=== PATIENT | female | born 1935 | race Caucasian/White ===

== ENCOUNTER 2016-08-05 19:37 | Emergency (ER) | payer MEDICARE ==
[~2016-08-05] VITALS: Ht 162.6 cm; Wt 72.0 kg
[~2016-08-05 19:37] MED LIST: ASCO500C PO; ASPI81TA82 PO; LEVO112T17 PO; LORA2TAB PO; OMPR20CCR PO; PREM0.622 PO; ROSU10 PO; TAB-TAB PO; VITA100018 PO; VITA400C70 PO
[2016-08-05] MEDS ORDERED: SODIUM CHLOR 0.9% 1000 ML INJ 1,000 ML IV SCH (19:46)
--- NOTE | 2016-08-05 19:48 | PD ---
HPI Chief Complaint: Fall, EtOH Intox, Ativan Ingestion Time Seen by Provider: 19:46 Travel History International Travel<30 days: No Contact w/Intl Traveler<30days: No History of Present Illness HPI The patient is 81 years old and arrives by EMS. She was found on the floor by her at home. She lives with her and her Only in a private residence. She argued with him earlier in the day and had ingested Ativan 2 mg tablets of unknown quantity however the patient states two. She also drank gin. She states she drinks 1 martini every day at 1 PM. Timing of ingestion is unknown. The patient denies memory of a fall. Evidently following the argument helped her into bed. He then found her on the floor and called EMS. Patient reports a history of falls and difficulty with balance. On scene the blood glucose was 83. PFSH Past Medical History Cancer: No Diabetes: No Hepatitis: No Hiatal Hernia: No Thyroid Disease: Yes Past Surgical History Abdominal Surgery: Yes (TOTAL HYSTERECTOMY) Eye Surgery: Yes (CATARACT LEFT ) Gynecologic Surgery: Yes (hysterectomy) Pacemaker: No Other Surgery: Yes Social History Alcohol Use: Yes (DAILY) Tobacco Use: No Substance Use: No Allergies-Medications (Allergen,Severity, Reaction): Coded Allergies: Prozac (Unverified Allergy, Severe, Swelling, 08/05/16) FACE SWELLED UP Tylenol (Unverified Allergy, Severe, hives and itching, 08/05/16) Aspirin (Unverified Allergy, Mild, hives, 08/05/16) Reported Meds & Prescriptions Reported Meds & Active Scripts Active Reported Vitamin E 400 Unit Cap 400 Units PO DAILY Crestor (Rosuvastatin Calcium) 10 Mg Tab 10 Mg PO DAILY Prilosec (Omeprazole) 20 Mg Cap 20 Mg PO DAILY Multivitamin Adults (Multiple Vitamins W/ Minerals) 1 Tab 1 Tab PO DAILY Lorazepam 2 Mg Tab 2 Mg PO HS PRN Levoxyl (Levothyroxine Sodium) 112 Mcg Tab 112 Mcg PO DAILY Premarin (Estrogens Conjugated) 0.625 Mg Tab 0.625 Mg PO DAILY Vitamelts Vitamin D (Cholecalciferol) 1,000 Unit Tab 1,000 Units PO DAILY Aspirin 81 Mg Chew 81 Mg CHEW DAILY Vitamin C (Ascorbic Acid) 500 Mg Cap 500 Mg PO DAILY Review of Systems ROS Limitations: Clinical Condition, Intoxication Physical Exam Narrative GENERAL: 81 yo F, WNWND, slightly slurred speech c/w etoh intox SKIN: Warm and dry. HEAD: No evidence trauma. Normocephalic. EYES: Pupils equal and round. No scleral icterus. No injection or drainage. ENT: No nasal bleeding or discharge. Mucous membranes pink and moist. NECK: Trachea midline. No JVD. CARDIOVASCULAR: Regular rate and rhythm. RESPIRATORY: No accessory muscle use. Clear to auscultation. Breath sounds equal bilaterally. GASTROINTESTINAL: Abdomen soft, non-tender, nondistended. Hepatic and splenic margins not palpable. MUSCULOSKELETAL: Extremities without clubbing, cyanosis, or edema. No obvious deformities. No tenderness about the hips/greater trochanter. NEUROLOGICAL: Awake and alert. No obvious cranial nerve deficits. Motor grossly within normal limits. Five out of 5 muscle strength in the arms and legs. Normal speech. PSYCHIATRIC: Appropriate mood and affect; insight and judgment normal. Data Data Last Documented VS Vital Signs Date Time Temp Pulse Resp B/P Pulse Ox O2 Delivery O2 Flow Rate FiO2 08/05/16 20:16 75 16 96 Room Air 08/05/16 19:49 98.2 137/60 Orders Basic Metabolic Panel (Bmp) (08/05/16 19:46) Complete Blood Count With Diff (08/05/16 19:46) Creatine Kinase (Cpk) (08/05/16 19:46) Ecg Monitoring (08/05/16 19:46) Iv Access Insert/Monitor (08/05/16 19:46) Cath For Specimen (08/05/16 19:46) Oximetry (08/05/16 19:46) Sodium Chloride 0.9% Flush (Ns Flush) (08/05/16 20:00) Sodium Chlor 0.9% 1000 Ml Inj (Ns 1000 M (08/05/16 19:46) Drug Screen, Random Urine (08/05/16 19:46) Alcohol (Ethanol) (08/05/16 19:46) Salicylates (Aspirin) (08/05/16 19:46) Tylenol (Acetaminophen) (08/05/16 19:46) Labs Laboratory Tests Test 08/05/16 08/05/16 20:00 20:25 White Blood Count 5.0 TH/MM3 Red Blood Count 4.21 MIL/MM3 Hemoglobin 13.5 GM/DL Hematocrit 39.1 % Mean Corpuscular Volume 92.9 FL Mean Corpuscular Hemoglobin 32.0 PG Mean Corpuscular Hemoglobin 34.4 % Concent Red Cell Distribution Width 12.9 % Platelet Count 171 TH/MM3 Mean Platelet Volume 10.3 FL Neutrophils (%) (Auto) 53.0 % Lymphocytes (%) (Auto) 31.9 % Monocytes (%) (Auto) 8.0 % Eosinophils (%) (Auto) 6.1 % Basophils (%) (Auto) 1.0 % Neutrophils # (Auto) 2.7 TH/MM3 Lymphocytes # (Auto) 1.6 TH/MM3 Monocytes # (Auto) 0.4 TH/MM3 Eosinophils # (Auto) 0.3 TH/MM3 Basophils # (Auto) 0.0 TH/MM3 CBC Comment DIFF FINAL Differential Comment Sodium Level 142 MEQ/L Potassium Level 4.4 MEQ/L Chloride Level 109 MEQ/L Carbon Dioxide Level 25.8 MEQ/L Anion Gap 7 MEQ/L Blood Urea Nitrogen 17 MG/DL Creatinine 0.72 MG/DL Estimat Glomerular Filtration 78 ML/MIN Rate Random Glucose 89 MG/DL Calcium Level 8.7 MG/DL Total Creatine Kinase 56 U/L Salicylates Level LESS THAN 1.7 MG/DL Acetaminophen Level LESS THAN 2.0 MCG/ML Ethyl Alcohol Level 93 MG/DL Urine Opiates Screen NEG Urine Barbiturates Screen NEG Urine Amphetamines Screen NEG Urine Benzodiazepines Screen NEG Urine Cocaine Screen NEG Urine Cannabinoids Screen NEG MDM Medical Decision Making Medical Screen Exam Complete: Yes Emergency Medical Condition: Yes Medical Record Reviewed: Yes Differential Diagnosis Electrolyte imbalance, rhabdomyolysis, renal injury, fracture of the pelvis or femur, intracranial hemorrhage, alcohol abuse, alcohol intoxication, polysubstance abuse, benzodiazepine usage Narrative Course CBC & BMP Diagram 08/05/16 20:00 Ethyl alcohol 93 Tylenol and salicylates both negative The patient reports feeling much better. Her is at the bedside. At 9: 00 PM she demonstrates capacity for ambulation independent decision making. 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 Diagnosis Primary Impression: Alcohol intoxication Qualified Code: F10.120 - Alcohol intoxication, uncomplicated Additional Impressions: Benzodiazepine misuse Fall Qualified Code: W19.XXXA - Fall, initial encounter Referrals: Kevin Up MD 2 days Additional Instructions: You have a choice when it comes to health care, and we are glad that you chose [facility]. Hopefully, we have met your expectations on today's visit. You are welcome to return to [facility] at any time, as we are committed to meeting the health care needs of our community. Med/Other Pt SpecificInfo: No Change to Meds Disposition: 01 DISCHARGE HOME Condition: Dany Lakhani MD Aug 05, 2016 19:48
[2016-08-05 19:49] VITALS: BP 137/60; PULSE 75; RESP 16; TEMP 98.2; O2SAT 98
[2016-08-05] MEDS ORDERED: SODIUM CHLORIDE 0.9% FLUSH 5 ML FLUSH IVF PRN (20:00)
[2016-08-05 20:14] VITALS: RESP 16; O2SAT 97
[2016-08-05 20:20] LABS: AUTOMATED NEUTROPHIL # 2.7 TH/MM3 (1.8-7.7); EOSINOPHIL # 0.3 TH/MM3 (0-0.4); EOSINOPHIL % 6.1 % (0.0-4.0); HEMATOCRIT 39.1 % (35.0-46.0); HEMO FLAGS DIFF FINAL; LYMPH % 31.9 % (9.0-44.0); LYMPHOCYTE # 1.6 TH/MM3 (1.0-4.8); MEAN CELL VOLUME 92.9 FL (80.0-100.0); MEAN CORPUSCULAR HGB CONC 34.4 % (32.0-36.0); PLATELET COUNT 171 TH/MM3 (150-450); RED BLOOD COUNT 4.21 MIL/MM3 (4.00-5.30); RED CELL DISTRIBUTION WIDTH 12.9 % (11.6-17.2)
[2016-08-05 20:46] LABS: AMPHETAMINE, URINE NEG (NEG); BARBITURATES, URINE NEG (NEG); COCAINE, URINE NEG (NEG)
[2016-08-05] MEDS ORDERED: PRIL20CA9 PO (20:46)
[2016-08-05] MEDS ORDERED: MULT1TAB84 PO (20:46)
[2016-08-05] MEDS ORDERED: CHOL1TAB PO (20:46)
[2016-08-05] MEDS ORDERED: ROSU10 PO (20:46)
[2016-08-05] MEDS ORDERED: ASPI81CH CHEW (20:46)
[2016-08-05] MEDS ORDERED: LEVO112T29 PO (20:46)
[2016-08-05] MEDS ORDERED: VITA400C2 PO (20:46)
[2016-08-05] MEDS ORDERED: ASCO500C PO (20:46)
[2016-08-05] MEDS ORDERED: ESTR.625 PO (20:46)
[2016-08-05] MEDS ORDERED: LORA2TAB7 PO (20:46)
[2016-08-05 20:50] LABS: ANION GAP 7 MEQ/L (5-15); BICARBONATE 25.8 MEQ/L (21.0-32.0); BLOOD UREA NITROGEN 17 MG/DL (7-18); CHLORIDE 109 MEQ/L (98-107); GLOMERULAR FILTRATION RATE 78 ML/MIN (>89); POTASSIUM 4.4 MEQ/L (3.5-5.1); SODIUM (NA) 142 MEQ/L (136-145)
[2016-08-05 20:54] LABS: ACETAMINOPHEN LESS THAN 2.0 MCG/ML (10.0-30.0); CREATINE KINASE 56 U/L (26-192)
--- NOTE | 2016-08-06 09:20 | EKG ---
Date Performed: 08/05/2016 Time Performed: 19:54:58 PTAGE: 81 years EKG: Sinus rhythm NORMAL ECG PREVIOUS TRACING : 04/01/2014 19.58 Compared to prior tracing no significant change DOCTOR: Ace Rivera Interpretating Date/Time 08/06/2016 09:19:21
--- NOTE | 2016-08-06 10:02 | HHI.PR ---
Subjective Remarks Patient was in emergency room for alcohol use with ingestion Ativan and when i saw patient unable to ambulate and was incoherent . Patient did recognize me and was unable to tell us what she took and how much. Patient was started on IV fluids and did improve . Patient was feeling better and i decided to discharge but on walking was very unsteady and i was going to admit to observation. Patient had a fight with her and drink excessively and my have taken at least 2 extra Ativan. Later in evening she became more alert and both myself ER physician and agreed to send her home and to follow up with me. Objective Vitals GENERAL: SKIN: Warm and dry. HEAD: Atraumatic. Normocephalic. EYES: Pupils equal and round. No scleral icterus. No injection or drainage. ENT: No nasal bleeding or discharge. Mucous membranes pink and moist. NECK: Trachea midline. No JVD. CARDIOVASCULAR: Regular rate and rhythm. RESPIRATORY: No accessory muscle use. Clear to auscultation. Breath sounds equal bilaterally. GASTROINTESTINAL: Abdomen soft, non-tender, nondistended. Hepatic and splenic margins not palpable. MUSCULOSKELETAL: Extremities without clubbing, cyanosis, or edema. No obvious deformities. NEUROLOGICAL: Awake and alert. No obvious cranial nerve deficits. Motor grossly within normal limits. Five out of 5 muscle strength in the arms and legs. Normal speech. PSYCHIATRIC: Appropriate mood and affect; insight and judgment normal. Initial confusion Vital Signs Date Time Temp Pulse Resp B/P Pulse Ox O2 Delivery O2 Flow Rate FiO2 08/05/16 20:16 75 16 96 Room Air 08/05/16 20:14 16 97 Room Air 08/05/16 19:49 98.2 75 16 137/60 98 Result Diagram: 08/05/16199908/05/161999 Medications and IVs given IV fluid A/P Problem List: (1) Alcohol intoxication Status: Acute Plan: level 90 will discharge home with (2) Benzodiazepine misuse Status: Acute Plan: probable small amout ingested will follow up with patient in office (3) Fall Status: Acute Plan: On exam no evidence of any trauma and had no pain anywhere Assessment and Plan home with follow up in office Problem Qualifiers (1) Alcohol intoxication: Qualified Code: F10.120 - Alcohol intoxication, uncomplicated (2) Fall: Qualified Code: W19.XXXA - Fall, initial encounter Kevin Up MD Aug 06, 2016 10:02
== END 2016-08-05 21:54 | disposition home or self-care (01) ==
LOC: NEPE 19:37 → UNDOADMOB 21:20 → NEDA 21:20 → UNDODISOB 21:50
DX: F10.120 Alcohol abuse with intoxication, uncomplicated (principal); F19.99 Other psychoactive substance use, unspecified with unspecified psychoactive substance-induced disorder; E07.9 Disorder of thyroid, unspecified; R29.6 Repeated falls; W19.XXXA Unspecified fall, initial encounter; Z91.81 History of falling; Y92.003 Bedroom of unspecified non-institutional (private) residence as the place of occurrence of the external cause; Y99.8 Other external cause status
CPT/HCPCS: 80048; 80307; 80320; 82550; 85025; 93005; 96360; 99285; J7030; P9612; 80329; G0378; G0480

== ENCOUNTER 2017-03-05 10:46 | Emergency (ER) | payer MEDICARE ==
[~2017-03-05 10:46] MED LIST changes: +ASPI81CH CHEW; -ASPI81TA82 PO; +CHOL1TAB PO; +ESTR.625 PO; -LEVO112T17 PO; +LEVO112T29 PO; -LORA2TAB PO; +LORA2TAB7 PO; +MULT1TAB84 PO; -OMPR20CCR PO; -PREM0.622 PO; +PRIL20CA9 PO; -TAB-TAB PO; -VITA100018 PO; +VITA400C2 PO; -VITA400C70 PO
[2017-03-05 10:57] VITALS: BP 130/71; PULSE 77; RESP 18; TEMP 97.6; O2SAT 96
--- NOTE | 2017-03-05 11:10 | PD ---
HPI Chief Complaint: Foreign Body Time Seen by Provider: 11:04 Travel History International Travel<30 days: No Contact w/Intl Traveler<30days: No Traveled to known affect area: No History of Present Illness HPI 81-year-old female with history of hypertension, presents to the ER today for 1 day of nausea, vomiting, and felt like she had something in the back of her throat after she vomited. She denies any drooling, difficulty breathing, or any other symptoms. She states that it feels like is the back of her tongue. Modifying Factors: None Associated Signs & Symptoms: Difficulty swallowing, feels something stuck in the back of her tongue Risk Factors: None PFSH Past Medical History Cancer: No Cardiovascular Problems: No Diabetes: No Diminished Hearing: No Hepatitis: No Hiatal Hernia: No Hypertension: Yes Medical other: Yes (ARTHRITIS) Respiratory: No Immunizations Current: Yes Thyroid Disease: Yes Influenza Vaccination: Yes ?: Not Past Surgical History Abdominal Surgery: Yes (TOTAL HYSTERECTOMY) Eye Surgery: Yes (CATARACT LEFT ) Gynecologic Surgery: Yes (hysterectomy) Pacemaker: No Other Surgery: Yes Social History Alcohol Use: Yes (DAILY) Tobacco Use: No Substance Use: No Allergies-Medications (Allergen,Severity, Reaction): Coded Allergies: acetaminophen (Unverified Allergy, Severe, hives and itching, 03/05/17) fluoxetine (Unverified Allergy, Severe, Swelling, 03/05/17) FACE SWELLED UP aspirin (Unverified Allergy, Mild, hives, 03/05/17) Reported Meds & Prescriptions Reported Meds & Active Scripts Active Reported Lisinopril 10 Mg Tab 10 Mg PO BID NEB Metoprolol Tartrate 25 Mg Tab 25 Mg PO BID Crestor (Rosuvastatin Calcium) 10 Mg Tab 10 Mg PO DAILY Lorazepam 2 Mg Tab 2 Mg PO HS PRN Levoxyl (Levothyroxine Sodium) 112 Mcg Tab 112 Mcg PO DAILY Premarin (Estrogens Conjugated) 0.625 Mg Tab 0.625 Mg PO DAILY Aspirin 81 Mg Chew 81 Mg CHEW DAILY Review of Systems Except as stated in HPI: all other systems reviewed are Neg Physical Exam Narrative GENERAL: Well-developed elderly white female patient who is currently in moderate distress. Awake, alert, oriented 3. Very hard of hearing. No drooling. SKIN: Focused skin assessment warm/dry. HEAD: Atraumatic. Normocephalic. EYES: Pupils equal and round. No scleral icterus. No injection or drainage. ENT: Mucosa pink and moist. No erythema or exudates. Notable uvular edema. With small amount of asymmetry more pronounced edema on the left of the uvula compared to the right. Airway patent. No submandibular fullness. No palpable masses. NECK: Trachea midline. No JVD. CARDIOVASCULAR: Regular rate and rhythm. No murmur appreciated. RESPIRATORY: No accessory muscle use. Clear to auscultation. Breath sounds equal bilaterally. GASTROINTESTINAL: Abdomen soft, non-tender, nondistended. Hepatic and splenic margins not palpable. MUSCULOSKELETAL: No obvious deformities. No clubbing. No cyanosis. No edema. NEUROLOGICAL: Awake and alert. No obvious cranial nerve deficits. Motor grossly within normal limits. Garbled speech. PSYCHIATRIC: Appropriate mood and affect; insight and judgment normal. Data Data Last Documented VS Vital Signs Date Time Temp Pulse Resp B/P (MAP) Pulse Ox O2 Delivery O2 Flow Rate FiO2 03/05/17 13:19 03/05/17 13:09 18 03/05/17 12:02 70 98 Room Air 03/05/17 10:57 97.6 Orders Orders Complete Blood Count With Diff (03/05/17 11:04) Comprehensive Metabolic Panel (03/05/17 11:04) Ecg Monitoring (03/05/17 11:04) Iv Access Insert/Monitor (03/05/17 11:04) Oximetry (03/05/17 11:04) Diphenhydramine Inj (Benadryl Inj) (03/05/17 11:15) Methylprednisolone So Succ Inj (Solumedr (03/05/17 11:15) Famotidine Inj (Pepcid Inj) (03/05/17 11:15) Sodium Chloride 0.9% Flush (Ns Flush) (03/05/17 11:15) Ct Soft Tiss Neck W Iv Cont (03/05/17 ) Iohexol 350 Inj (Omnipaque 350 Inj) (03/05/17 11:50) Labs Laboratory Tests Test 03/05/17 11:08 White Blood Count 13.1 TH/MM3 Red Blood Count 4.82 MIL/MM3 Hemoglobin 15.4 GM/DL Hematocrit 44.6 % Mean Corpuscular Volume 92.4 FL Mean Corpuscular Hemoglobin 32.0 PG Mean Corpuscular Hemoglobin Concent 34.6 % Red Cell Distribution Width 12.7 % Platelet Count 197 TH/MM3 Mean Platelet Volume 9.9 FL Neutrophils (%) (Auto) 74.6 % Lymphocytes (%) (Auto) 17.9 % Monocytes (%) (Auto) 3.7 % Eosinophils (%) (Auto) 3.4 % Basophils (%) (Auto) 0.4 % Neutrophils # (Auto) 9.8 TH/MM3 Lymphocytes # (Auto) 2.3 TH/MM3 Monocytes # (Auto) 0.5 TH/MM3 Eosinophils # (Auto) 0.4 TH/MM3 Basophils # (Auto) 0.1 TH/MM3 CBC Comment DIFF FINAL Differential Comment Blood Urea Nitrogen 14 MG/DL Creatinine 1.00 MG/DL Random Glucose 142 MG/DL Total Protein 7.3 GM/DL Albumin 3.4 GM/DL Calcium Level 8.9 MG/DL Alkaline Phosphatase 69 U/L Aspartate Amino Transf (AST/SGOT) 32 U/L Alanine Aminotransferase (ALT/SGPT) 20 U/L Total Bilirubin 0.7 MG/DL Sodium Level 136 MEQ/L Potassium Level 4.4 MEQ/L Chloride Level 103 MEQ/L Carbon Dioxide Level 21.5 MEQ/L Anion Gap 12 MEQ/L Estimat Glomerular Filtration Rate 53 ML/MIN [facility] Medical Decision Making Medical Screen Exam Complete: Yes Emergency Medical Condition: Yes Medical Record Reviewed: Yes Interpretation(s) Laboratory Tests Test 03/05/17 11:08 White Blood Count 13.1 TH/MM3 (4.0-11.0) Hemoglobin 15.4 GM/DL (11.6-15.3) Neutrophils (%) (Auto) 74.6 % (16.0-70.0) Neutrophils # (Auto) 9.8 TH/MM3 (1.8-7.7) Random Glucose 142 MG/DL (74-106) Estimat Glomerular Filtration Rate 53 ML/MIN (>89) Last [address] 03/05/17 0000 Signed Impressions: Service Date/Time: Sunday, March 05, 2017 11:42 - CONCLUSION: 1. There is extensive abnormal soft tissue involving the left side of the oropharynx and extending all the way down to the left side of the larynx. There is abnormal soft tissue fullness evident crossing midline at the level of the larynx. These findings are suspicious for malignancy. There are several nodes evident in the jugular travis chain on the left as well which demonstrate contrast enhancement. Metastatic adenopathy is not excluded. 2. Air-fluid level in the right maxillary sinus suggesting sinusitis. Dany Neville MD Differential Diagnosis Angioedema versus food bolus versus trauma to the pharynx Narrative Course Patient was given Solu-Medrol and Benadryl in the ER and was observed. CAT scan is showing abnormal swelling in the throat pharynx going all the way down to the laryngeal level with some enlarged lymph nodes as well. Patient is also on an FRANK inhibitor. At this point, it is fairly atypical history and am not sure whether this is an FRANK inhibitor related angioedema versus pharyngeal edema secondary to trauma during vomiting but on reevaluation 2 and half hours later, she is feeling improved and states her throat is feeling better. At this point, case was discussed with Dr. Coffey who states that he thinks that as long as the airway is patent, the patient can just follow up with him. He states he is in his office now and to send the patient straight over. He would put the patient on a Medrol Dosepak and antibiotics. I have discussed the findings with the patient and have talked her about the dangers of worsening of airway issues. She needs to return here for any worsening in symptoms. Plan was discussed with her and she states understanding. Diagnosis Primary Impression: Uvular edema Referrals: Oni Coffey MD Med/Other Pt SpecificInfo: Prescription(s) given Scripts Cephalexin (Keflex) 500 Mg Cap 500 MG PO Q6H for Infection for 7 Days, CAP 0 Refills Prov: Ingrid Meneses MD 03/05/17 Methylprednisolone Dosepak (Medrol Dosepak) 4 Mg Dspk 4 MG PO DIRECTED, #1 DSPK 0 Refills Per Pharmacist direction Prov: Ingrid Meneses MD 03/05/17 Disposition: 01 DISCHARGE HOME Condition: Stable Ingrid Meneses MD Mar 05, 2017 11:10
[2017-03-05] MEDS ORDERED: methylPREDNISolone SOD SUCC 125 MG/2 ML VIAL IV PUSH ONE (11:15)
[2017-03-05] MEDS ORDERED: diphenhydrAMINE HCL 50 MG/ML VIAL IVP ONE (11:15)
[2017-03-05] MEDS ORDERED: FAMOTIDINE 20 MG/2 ML VIAL IV PUSH ONE (11:15)
[2017-03-05] MEDS ORDERED: SODIUM CHLORIDE 0.9% FLUSH 10 ML FLUSH IV FLUSH PRN (11:15)
[2017-03-05 11:16] LABS: AUTOMATED NEUTROPHIL # 9.8 TH/MM3 (1.8-7.7); BASOPHIL # 0.1 TH/MM3 (0-0.2); BASOPHIL % 0.4 % (0.0-2.0); EOSINOPHIL # 0.4 TH/MM3 (0-0.4); EOSINOPHIL % 3.4 % (0.0-4.0); HEMATOCRIT 44.6 % (35.0-46.0); HEMO FLAGS DIFF FINAL; LYMPH % 17.9 % (9.0-44.0); LYMPHOCYTE # 2.3 TH/MM3 (1.0-4.8); MEAN CELL VOLUME 92.4 FL (80.0-100.0); MEAN CORPUSCULAR HGB CONC 34.6 % (32.0-36.0); MONO % 3.7 % (0.0-8.0); NEUT % 74.6 % (16.0-70.0); PLATELET COUNT 197 TH/MM3 (150-450); RED BLOOD COUNT 4.82 MIL/MM3 (4.00-5.30); RED CELL DISTRIBUTION WIDTH 12.7 % (11.6-17.2); WHITE BLOOD COUNT 13.1 TH/MM3 (4.0-11.0)
[2017-03-05 11:17] VITALS: BP 99/59; PULSE 78; RESP 18; O2SAT 96
[2017-03-05 11:23] LABS: CHLORIDE 103 MEQ/L (98-107); POTASSIUM 4.4 MEQ/L (3.5-5.1); SODIUM (NA) 136 MEQ/L (136-145)
[2017-03-05 11:28] LABS: ANION GAP 12 MEQ/L (5-15); BICARBONATE 21.5 MEQ/L (21.0-32.0); BLOOD UREA NITROGEN 14 MG/DL (7-18)
[2017-03-05 11:31] LABS: ALT (GPT) 20 U/L (10-53); AST (GOT) 32 U/L (15-37)
[2017-03-05 11:32] LABS: GLOMERULAR FILTRATION RATE 53 ML/MIN (>89)
[2017-03-05 11:33] LABS: TOTAL BILIRUBIN ADULT 0.7 MG/DL (0.2-1.0)
[2017-03-05 11:34] LABS: ALKALINE PHOSPHATASE 69 U/L (45-117)
[2017-03-05] MEDS ORDERED: METO25TA3 PO (11:34)
[2017-03-05] MEDS ORDERED: LISI10TA3 PO (11:34)
[2017-03-05] MEDS ORDERED: IOHEXOL 350 MG/ML 10 ML VIAL (for RAD DIAG) IVCONTRAST ONE (11:50)
[2017-03-05 12:02] VITALS: BP 100/60; PULSE 70; RESP 18; O2SAT 98
--- NOTE | 2017-03-05 12:41 | RADRPT ---
EXAM DATE/TIME: 03/05/2017 11:42 [facility] COMPARISON: No previous studies available for comparison. INDICATIONS : Difficulty swallowing, feels like something swollen on back of tongue. Evaluate for abscess. IV CONTRAST: 60 cc Omnipaque 350 (iohexol) IV RADIATION DOSE: 13.87 CTDIvol (mGy) MEDICAL HISTORY : Hypertension. SURGICAL HISTORY : Hysterectomy. ENCOUNTER: Initial ACUITY: 1 day PAIN SCALE: 2/10 LOCATION: neck TECHNIQUE: Volumetric scanning of the neck was performed. Using automated exposure control and adjustment of th e mA and/or kV according to patient size, radiation dose was kept as low as reasonably achievable to obtain optimal diagnostic quality images. DICOM format image data is available electronically for r eview and comparison. FINDINGS: The examination demonstrates abnormal soft tissue evident extending along the left side of the oropha rynx. This begins along the inferior aspect of the tonsillar pillar on the left extends laterally int o the left parapharyngeal space and inferiorly down past the level of the glossotonsillar sulcus and involves the posterior aspect of the larynx. This is highly suspicious for malignancy. The examinatio n also demonstrates some scattered, small group 2 and group 3 jugular nodes on the left. The largest is seen just anterior to the left sternocleidomastoid muscle and measures 1.0 x 0.7 cm. These nodes d o demonstrate enhancement and are concerning for metastatic adenopathy. No significant adenopathy is seen on the right. No posterior cervical adenopathy is seen. The limited portion of brain parenchyma visualized is unremarkable. There is moderate mucoperiosteal sinus disease with an air-fluid level in the right maxillary sinus s uggesting sinusitis. The parotid and submandibular glands are intact. The limited portion of lung apex visualized is unremarkable. The visualized bony structures demonstrate degenerative changes in the cervical spine but are otherwi se intact. CONCLUSION: 1. There is extensive abnormal soft tissue involving the left side of the oropharynx and extending al l the way down to the left side of the larynx. There is abnormal soft tissue fullness evident crossin g midline at the level of the larynx. These findings are suspicious for malignancy. There are several nodes evident in the jugular travis chain on the left as well which demonstrate contrast enhancement. Metastatic adenopathy is not excluded. 2. Air-fluid level in the right maxillary sinus suggesting sinusitis. Dany Neville MD on March 05, 2017 at 12:17 Board Certified Radiologist. This report was verified electronically.
[2017-03-05] MEDS ORDERED: MEDR4PAK PO (13:27)
[2017-03-05] MEDS ORDERED: CEPH-460 PO (13:27)
== END 2017-03-05 13:38 | disposition home or self-care (01) ==
LOC: PHED 10:46
DX: R60.0 Localized edema (principal); R59.0 Localized enlarged lymph nodes; R93.8 Abnormal findings on diagnostic imaging of other specified body structures; R13.10 Dysphagia, unspecified; I10 Essential (primary) hypertension; E07.9 Disorder of thyroid, unspecified; Z87.39 Personal history of other diseases of the musculoskeletal system and connective tissue
CPT/HCPCS: 70491; 80053; 85025; 96374; 96375; 99285; J1200; J2930; Q9967